=== PATIENT | male | born 1980 | race Caucasian/White ===

== ENCOUNTER 2016-09-21 08:49 | Emergency (ER) | payer BC ==
[2016-09-21 09:08] VITALS: BP 134/80
--- NOTE | 2016-09-21 09:36 | UC ---
Skin Complaint HPI - HPI Summary HPI Summary: CHRONIC RASH LEFT LOWER BACK X 2 YEARS, + ITCHY , GETTING WORSE OVER THE PAST FEW WEEKS NO PAIN . NO CHANGE IN SOAP , DETERGENT, FOOD OR DRINKS - History of Current Complaint Chief Complaint: UCRash Time Seen by Provider: 09/21/16 09:08 Stated Complaint: SKIN COMPLAINT Hx Obtained From: Patient Onset/Duration: Gradual Onset, Lasting Weeks - 2 YEARS, Still Present, Worse Since - PAST 2 WEEKS Timing: Constant Onset Severity: Moderate Current Severity: Moderate Location: Other - LEFT LOWER BACK Character: Pruritus, Redness Aggravating: Nothing Alleviating: Nothing Associated Signs & Symptoms: Positive: Rash. Negative: Nausea, Vomiting, Numbness, Fever, Tenderness - Allergy/Home Medications Allergies/Adverse Reactions: Allergies Allergy/AdvReac Type Severity Reaction Status Date / Time Amoxicillin [From Augmentin] Allergy Severe Hives/Diff. Verified 09/21/16 09:07 Breathing/I tching Clavulanic Acid Allergy Severe Hives/Diff. Verified 09/21/16 09:07 [From Augmentin] Breathing/I tching Penicillins Allergy Severe SWELLS UP Verified 09/21/16 09:07 Review of Systems Constitutional: Negative Skin: Rash - LEFT LOWER BACK Eyes: Negative ENT: Negative Respiratory: Negative Cardiovascular: Negative Gastrointestinal: Negative All Other Systems Reviewed And Are Negative: Yes PMH/Surg Hx/FS Hx/Imm Hx Endocrine History Of: Reports: Diabetes - Type 2, Thyroid Disease - hypothyroid Cardiovascular History Of: Reports: Hypertension Denies: Pacemaker/ICD Respiratory History Of: Reports: Asthma - WHEN A CHILD OUT GREW - Surgical History Surgical History: Yes Surgery Procedure, Year, and Place: ear tubes at 5 -6 years - Family History Known Family History: Positive: Cardiac Disease - Social History Alcohol Use: None Alcohol Amount: 1 beers Substance Use Type: None Smoking Status (MU): Current Some Day Smoker When Did the Patient Quit Smoking/Using Tobacco: will smoke a cigar 1-2 x's a year when golfing Household Exposure Type: Cigars - Immunization History Most Recent Tetanus Shot: 2009 Physical Exam Triage Information Reviewed: Yes Appearance: Well-Appearing, No Pain Distress, Well-Nourished Vital Signs: Initial Vital Signs Temp 98.6 F 09/21/16 09:00 Pulse 83 09/21/16 09:00 Resp 18 09/21/16 09:00 BP 134/80 09/21/16 09:00 Vital Signs Reviewed: Yes Eyes: Positive: Conjunctiva Clear ENT: Positive: Normal ENT inspection, Hearing grossly normal, Pharynx normal Neck exam: Normal Neck: Positive: Supple, Nontender, No Lymphadenopathy Respiratory: Positive: Chest non-tender, Lungs clear, Normal breath sounds Cardiovascular: Positive: RRR, No Murmur, Pulses Normal Skin: Positive: rashes - MACULAR RASH LEFT LOWER BACK , NO TENDERNESS, Course/Dx - Diagnoses Provider Diagnoses: DERMATITIS. ECZEMA Discharge - Discharge Plan Condition: Stable Disposition: HOME Prescriptions: Triamcinolone 0.1% CREAM (NF) [Kenalog 0.1% Cream (NF)] 1 applic TOPICAL BID # 60 gm Patient Education Materials: Eczema (ED) Referrals: Main Dan MD [Primary Care Provider] - If Needed
== END 2016-09-21 09:34 | disposition home or self-care (01) ==
LOC: UCCORT 08:49
DX: L30.9 Dermatitis, unspecified (principal); Z88.1 Allergy status to other antibiotic agents; Z88.0 Allergy status to penicillin; Z72.0 Tobacco use
CPT/HCPCS: 99212; G0463

== ENCOUNTER → 2016-09-27 08:08 | Day surgery (SDC) | payer BC ==
[~2016-09-27 08:08] MED LIST: Buffered Lidocaine 1% SYR 3ML* 3 ML/SYR SYRINGE INTRADERM ONE; Bupivacaine 0.5% SDV PF* 30 ML VIAL ONE; Clindamycin 900 MG IVPREMIX(* 900 MG/50 ML SDV IV ONE; Dexamethasone IV* 4 MG/ML 1 ML (4 MG) IV SLOW PU ONE; Dexamethasone IV* 4 MG/ML 1 ML (4 MG) ONE; Dexmedetomidine* 200 MCG/2 ML 2 ML VIAL ONE; DiMENhydriNATE IV* 50 MG/ML VIAL IV PUSH PRN; Famotidine IV* 10 MG/ML 2 ML (20 mg) IV ONE; Famotidine IV* 10 MG/ML 2 ML (20 mg) ONE; HYDROmorphone* 1 MG/ML 1 ML SYR IV PRN; HYDROmorphone* 1 MG/ML 1 ML SYR ONE; Ketorolac INJ* 30 MG/ML 1 ML VIAL ONE; Lidocaine 2% PF * 5 ML VIAL ONE; Midazolam* 1 MG/ML 5 ML VIAL (5 MG) ONE; Ondansetron INJ* 2 MG/ML VIAL IV PRN; Ondansetron INJ* 2 MG/ML VIAL ONE; PROCHLORPERAZINE INJ 5 MG/ML 2 ML VIAL IV PRN; Propofol* 10 MG/ML 20 ML BTL IV PUSH ONE; Scopolamine 1.5 mg* PATCH ONE; Scopolamine 1.5 mg* PATCH TRANSDERM PRN; Scopolomine PATCH Remove* 1 NOTE MISC PATCH OFF ONE; fentaNYL* 50 MCG/ML 2 ML VIAL (100 MCG VIAL) IV PRN; fentaNYL* 50 MCG/ML 2 ML VIAL (100 MCG VIAL) ONE; oxyCODONE TAB* 5 MG TAB ONE
[2016-09-27 14:59] VITALS: BP 153/90
--- NOTE | 2016-09-28 10:57 | OP ---
DATE OF OPERATION: 09/27/16 - [facility] DATE OF : 84 ATTENDING SURGEON: Dr. Yair Love RADIATOR FITTER: Sadia De Jesus PA-C ANESTHESIOLOGIST: Pilo Watson MD ANESTHESIA: General PRE-OP DIAGNOSIS: Malunion, right medial malleolus, with entrapment of posterior tibial tendon and anterolateral ankle instability and enlarged anterior tibial osteophytes. POST-OP DIAGNOSIS: Malunion, right medial malleolus, with entrapment of posterior tibial tendon and anterolateral ankle instability and enlarged anterior tibial osteophytes. OPERATIVE PROCEDURE: Revision medial malleolar nonunion, decompression posterior tibial tendon. Allograft reconstruction right anterior talofibular ligament and removal of bone spurs anterior tibia. DESCRIPTION OF PROCEDURE: The patient was taken to the operating room where we opened up medially in a longitudinal fashion over the medial malleolus. Posterior to the medial malleolus, we dissected up the posterior tibial tendon which was entrapped inside the fracture fragments. This was isolated while I did an osteotomy with a half-inch curved osteotome of the medial malleolus. We refashioned the nonunited fracture fragments to allow less bulk and to provide a smooth groove in the back for the posterior tibial tendon. We then fixed the medial malleolus with a one-third tubular plate of the Zachary ankle solution tray. Laterally, we opened up over the distal fibula to allow visualization of the anterior capsule, which was basically thin and incompetent. I extended in a T- shaped fashion the capsulotomy to allow full visualization of the lateral dome of the talus. There was a small 5 mm x 8 mm osteochondral defect. This was drilled with the 0.054 C-wire. We then created a blind tunnel at the junction of the anterior portion of the lateral articular cartilage and the neck of the talus. The blind tunnel was 20 mm deep and 7 mm in diameter with a double hamstring tendon over Aron needles. We pulled the double end of the tendon into the deep blind tunnel anchoring this with a 6.25 Bio-Tenodesis screw. We then brought the free end of the tendon up to the lateral fibula where we created a trough through the lateral cortex with a oscar and anchored the tendon under tension using a distal 5- hole one-third anatomic fibular plate of the [place] solution tray. We then brought the redundant periosteum back over the plate, and prior to closing, we removed the anterior osteophytes from the tibia using a small hook osteotome. The medial and lateral wounds were then irrigated thoroughly and closed with Vicryl and ami for the skin and a compression dressing and plaster splint applied. [id number]/[facility] #: [id number] AN
--- NOTE | 2016-09-28 12:31 | RAD ---
INDICATION: Right ankle hardware revision. COMPARISON: Comparison is made with prior x-ray study of the right ankle from June 01, 2016. TECHNIQUE: 7 seconds of intermittent fluoroscopic guidance were provided and 5 spot films of the right ankle were obtained in the operating room. FINDINGS: The films demonstrate placement of metallic plates along the outer aspects of the distal tibia and fibula transfixed with multiple screws. IMPRESSION: INTRAOPERATIVE CONTROL FILMS. CPT II Codes: 6045F
== END | disposition home or self-care (01) ==
LOC: OR 08:08
PROVIDERS: ATTEND Orthopaedic Surgery
DX: S82.51XA Displaced fracture of medial malleolus of right tibia, initial encounter for closed fracture (principal); X58.XXXA Exposure to other specified factors, initial encounter; Y92.9 Unspecified place or not applicable; M25.371 Other instability, right ankle; M25.772 Osteophyte, left ankle; M77.51 Other enthesopathy of right foot and ankle; Z88.0 Allergy status to penicillin; E66.01 Morbid (severe) obesity due to excess calories; E11.9 Type 2 diabetes mellitus without complications; Z79.84 Long term (current) use of oral hypoglycemic drugs; E03.9 Hypothyroidism, unspecified; M19.90 Unspecified osteoarthritis, unspecified site
CPT/HCPCS: 76000; A9270-GY; C1713; C1776; J1100; J1170; J1885; J2250; J2405; J2704; J3010; L8699

== ENCOUNTER 2016-10-08 20:05 | Emergency (ER) | payer BC, OTHER ==
[2016-10-08 20:44] VITALS: BP 135/86
--- NOTE | 2016-10-08 22:27 | UC ---
UC General HPI - HPI Summary HPI Summary: patient recently had surgery for a broken right ankle. he talked to the surgeons office to voice is concern over swelling and numbness of the 2nd 3rd and 4th toes. he slit the cast to see if the numbness went away. he is here now to make usre he is not having any nerve damage or cutting off his circulation. he is currently on ASA for DVT prevention. he denies any calf tenderness, all pain and numbness in the toes. - History of Current Complaint Chief Complaint: UCLowerExtremity Stated Complaint: RIGHT FOOT NUMBESS,TINGLING POST OP Time Seen by Provider: 10/08/16 22:14 Hx Obtained From: Patient Onset/Duration: Gradual Onset, Lasting Days Timing: Constant Onset Severity: Moderate Current Severity: Moderate - Allergy/Home Medications Allergies/Adverse Reactions: Allergies Allergy/AdvReac Type Severity Reaction Status Date / Time Amoxicillin [From Augmentin] Allergy Severe Hives/Diff. Verified 09/27/16 08:34 Breathing/I tching Clavulanic Acid Allergy Severe Hives/Diff. Verified 10/08/16 20:34 [From Augmentin] Breathing/I tching Penicillins Allergy Severe SWELLS UP Verified 10/08/16 20:34 Home Medications: Home Medications Aspirin [Chaparrita Advanced Aspirin Re] 325 mg PO DAILY 10/08/16 [History Confirmed 10/08/16] Triamcinolone 0.1% CREAM (NF) [Kenalog 0.1% Cream (NF)] 1 applic TOPICAL BID PRN 10/08/16 [History Confirmed 10/08/16] oxyCODONE TAB* [Roxycodone TAB 5 mg*] 5 mg PO Q6H PRN 10/08/16 [History Confirmed 10/08/16] PMH/Surg Hx/FS Hx/Imm Hx Previously Healthy: Yes Endocrine History Of: Reports: Diabetes - Type 2, Thyroid Disease - hypothyroid Cardiovascular History Of: Reports: Hypertension Denies: Pacemaker/ICD Respiratory History Of: Reports: Asthma - WHEN A CHILD OUT GREW - Surgical History Surgical History: Yes Surgery Procedure, Year, and Place: ear tubes at 5 -6 years. R foot surgery 2016 - Family History Known Family History: Positive: Cardiac Disease - Social History Alcohol Use: None Alcohol Amount: 1 beers Substance Use Type: None Smoking Status (MU): Current Some Day Smoker Type: Cigars Amount Used/How Often: 1 cigar yearly When Did the Patient Quit Smoking/Using Tobacco: will smoke a cigar 1-2 x's a year when golfing Household Exposure Type: Cigars - Immunization History Most Recent Tetanus Shot: 2009 Review of Systems Constitutional: Negative Skin: Other - bruising on top of right foot Eyes: Negative ENT: Negative Respiratory: Negative Cardiovascular: Negative Gastrointestinal: Negative Genitourinary: Negative Motor: Negative Neurovascular: Negative Musculoskeletal: Negative Neurological: Numbness Psychological: Negative All Other Systems Reviewed And Are Negative: Yes Physical Exam Triage Information Reviewed: Yes Appearance: Well-Appearing, Well-Nourished, Pain Distress Vital Signs: Initial Vital Signs Temp 97.6 F 10/08/16 20:37 Pulse 84 10/08/16 20:37 Resp 18 10/08/16 20:37 BP 135/86 10/08/16 20:37 Pulse Ox 97 10/08/16 20:37 Vital Signs Reviewed: Yes Eye Exam: Normal Eyes: Positive: Conjunctiva Clear ENT Exam: Normal ENT: Positive: Normal ENT inspection, Hearing grossly normal, Pharynx normal, TMs normal Dental Exam: Normal Neck exam: Normal Neck: Positive: Supple, Nontender, No Lymphadenopathy Respiratory Exam: Normal Respiratory: Positive: Chest non-tender, Lungs clear, Normal breath sounds Cardiovascular Exam: Normal Cardiovascular: Positive: RRR, No Murmur, Pulses Normal, Other: - Pedal pulse equal bilaterally, cap refill about 5 sec. Abdominal Exam: Normal Abdomen Description: Positive: Nontender, No Organomegaly, Soft Bowel Sounds: Positive: Present Musculoskeletal: Positive: Other: - able to move all toes, numbness on the dorsum of the 2-4th toes, Neurological Exam: Normal Neurological: Positive: Alert, Muscle Tone Normal Psychological Exam: Normal Skin: Positive: Other - various stages of bruising along the top of the foot Course/Dx - Course Course Of Treatment: hx obtained, exam performed, meds reviewed, education given sheila applied to open cast, educated on s/s to watch for and return to er for further evaluation of symptoms get worse. - Differential Dx - Multi-Symptom Provider Diagnoses: foot swelling post surgery. numbness Discharge - Discharge Plan Condition: Stable Disposition: HOME Patient Education Materials: Leg Edema (ED) Referrals: Main Dan MD [Primary Care Provider] - Additional Instructions: Continue to elevated foot above heart and follow surgeons recommendations. If you develop more swelling or your feet become cold or turn pale please report to ER for further follow up.
== END 2016-10-08 22:32 | disposition home or self-care (01) ==
LOC: UCCORT 20:05
DX: R60.0 Localized edema (principal); Z98.890 Other specified postprocedural states; Z79.82 Long term (current) use of aspirin; Z88.1 Allergy status to other antibiotic agents; Z88.0 Allergy status to penicillin; Z72.0 Tobacco use
CPT/HCPCS: 99212; G0463

== ENCOUNTER 2017-06-20 08:29 | Day surgery (SDC) | payer OTHER ==
--- NOTE | 2017-06-15 11:37 | HP ---
PREOPERATIVE HISTORY AND PHYSICAL: DATE OF ADMISSION: 06/20/17 PROVIDER: Yair Love MD. * (DICTATED BY SHAUN PEREZ) CHIEF COMPLAINT: Right ankle pain. HISTORY OF PRESENT ILLNESS: Manuel is a 37-year-old male followed by Dr. Love for right ankle instability and malunion of medial malleolus fracture. He underwent right ankle ligament repair as well as revision of medial malleolar fracture fixation. He has been doing quite well. He continues to have some mild pain and swelling in the ankle, which is likely the cause of the hardware itself. He is interested in surgical intervention for removal of the hardware at this point. PAST MEDICAL HISTORY: 1. Type 2 diabetes. 2. Hypothyroidism. 3. Hypertension. PAST SURGICAL HISTORY: Right ankle ligament reconstruction and malleolar fixation in 2017, ear tubes insertion as a child. He reports no complications with anesthesia with those procedures. CURRENT MEDICATIONS: 1. Glipizide 5 mg 1 p.o. b.i.d. 2. Diltiazem XR 180 mg 1 p.o. daily. 3. Levothyroxine 175 mcg p.o. daily. 4. Ramipril 10 mg 1 p.o. q.h.s. 5. Metformin HCl 500 mg 2 tablets b.i.d. 6. Januvia 100 mg daily. 7. Tylenol Extra Strength 500 mg 2 tablets 3 times daily as needed for pain. ALLERGIES: AMOXICILLIN, PENICILLIN, and AUGMENTIN. FAMILY HISTORY: Noncontributory. Positive for heart disease and skin cancer. SOCIAL HISTORY: The patient works at the [employer]. He lives with a female partner. He denies tobacco use. He denies alcoholic beverages. He denies any illicit drug use. He does exercise regularly. REVIEW OF SYSTEMS: A 14-point review of systems was discussed with the patient at today's visit. All of the systems were negative except in the HPI. PHYSICAL EXAMINATION GENERAL: He is a well-developed, well-nourished pleasant male in no acute distress at rest. He is alert and oriented x3 with appropriate mood and affect. VITAL SIGNS: The patient is 6 feet 3 inches, 320 pounds. Blood pressure 140/98 , temperature 97.6, respirations 20. HEENT: Normocephalic, atraumatic. Hearing and vision are grossly intact. NECK: His trachea is midline. RESPIRATORY: Lungs clear to auscultation bilaterally. No wheezes, rales or rhonchi. CARDIOVASCULAR: Regular rate and rhythm. No murmurs, rubs or gallops. Normal S1, S2. ABDOMEN: Soft, nondistended, nontender. Normal bowel sounds. EXTREMITIES: Exam of the right lower extremity, incisions are well healed to the medial and lateral aspect of the ankle. There is minimal edema throughout the ankle. He has no significant tenderness medially and laterally. He has full ankle range of motion with 5/5 strength. Sensation to light touch is intact. He has a normal vascular exam. IMPRESSION: Painful hardware of the right ankle. PLAN: The patient is to undergo right ankle hardware removal by Dr. Love on 06/20/17. The risks, benefits and postoperative course were discussed with the patient at length and he would like to proceed. A prescription for hydrocodone was sent to his pharmacy for postoperative pain. He was given a note to be out of work during the recovery period as well. He will follow up in the office in the postoperative phase. All of his questions were answered to his full satisfaction. He is understanding to call should he develop problems or concerns. SHAUN PEREZ [id number]/[facility] #: [id number] AN
[~2017-06-20 08:29] MED LIST changes: +Buffered Lidocaine 0.9% SYRIN* 5 ML/SYR SYRINGE INTRADERM ONE; -Buffered Lidocaine 1% SYR 3ML* 3 ML/SYR SYRINGE INTRADERM ONE; -Bupivacaine 0.5% SDV PF* 30 ML VIAL ONE; -Clindamycin 900 MG IVPREMIX(* 900 MG/50 ML SDV IV ONE; -Dexamethasone IV* 4 MG/ML 1 ML (4 MG) IV SLOW PU ONE; -Dexamethasone IV* 4 MG/ML 1 ML (4 MG) ONE; -Dexmedetomidine* 200 MCG/2 ML 2 ML VIAL ONE; -Famotidine IV* 10 MG/ML 2 ML (20 mg) ONE; -HYDROmorphone* 1 MG/ML 1 ML SYR IV PRN; -HYDROmorphone* 1 MG/ML 1 ML SYR ONE; -Ketorolac INJ* 30 MG/ML 1 ML VIAL ONE; -Lidocaine 2% PF * 5 ML VIAL ONE; -Midazolam* 1 MG/ML 5 ML VIAL (5 MG) ONE; +Morphine INJ* 2 MG/ML 1 ML CARPUJECT IV PRN; -Ondansetron INJ* 2 MG/ML VIAL ONE; -Propofol* 10 MG/ML 20 ML BTL IV PUSH ONE; -Scopolamine 1.5 mg* PATCH ONE; -Scopolomine PATCH Remove* 1 NOTE MISC PATCH OFF ONE; -fentaNYL* 50 MCG/ML 2 ML VIAL (100 MCG VIAL) ONE; -oxyCODONE TAB* 5 MG TAB ONE; +oxyCODONE/Acetamin 5/325 MG* TAB PO PRN
[2017-06-20] MEDS ORDERED: Buffered Lidocaine 0.9% SYRIN* 5 ML/SYR SYRINGE ONE (09:10)
[2017-06-20] MEDS ORDERED: Famotidine IV* 10 MG/ML 2 ML (20 mg) ONE (09:10)
[2017-06-20] MEDS ORDERED: Clindamycin 900 MG IVPREMIX(* 900 MG/50 ML SDV IV ONE (09:10)
[2017-06-20] MEDS ORDERED: fentaNYL* 50 MCG/ML 2 ML VIAL (100 MCG VIAL) ONE ×2 (09:44→10:33)
[2017-06-20] MEDS ORDERED: KETAMINE HCL* 50 MG/ML 10 ML VIAL ONE (09:44)
[2017-06-20] MEDS ORDERED: Midazolam* 1 MG/ML 10 ML VIAL (10 MG) ONE (09:44)
[2017-06-20] MEDS ORDERED: Lidocaine 2% PF * 5 ML VIAL ONE ×3 (10:07→10:43)
[2017-06-20] MEDS ORDERED: Bupivacaine 0.5% SDV PF* 30 ML VIAL ONE (10:07)
[2017-06-20] MEDS ORDERED: Insulin REGULAR(*) 1 UNITS UNIT ONE (10:11)
[2017-06-20] MEDS ORDERED: Phenylephrine IV* 40 MCG/ML 10 ML SYRINGE ONE (10:42)
[2017-06-20] MEDS ORDERED: Ketorolac INJ* 30 MG/ML 1 ML VIAL ONE (10:43)
[2017-06-20] MEDS ORDERED: Ondansetron INJ* 2 MG/ML VIAL ONE (10:43)
[2017-06-20] MEDS ORDERED: Propofol* 10 MG/ML 20 ML BTL IV PUSH ONE (10:43)
[2017-06-20] MEDS ORDERED: Labetalol IV* 5 MG/ML 20 ML VIAL ONE (10:54)
[2017-06-20] MEDS ORDERED: oxyCODONE/Acetamin 5/325 MG* TAB ONE (12:08)
[2017-06-20 13:30] VITALS: BP 138/86
--- NOTE | 2017-06-21 06:49 | OP ---
DATE OF OPERATION: 06/20/17 - [facility] DATE OF : 84 SURGEON: Yair Love MD EMPLOYMENT OFFICE CLERK: Sadia De Jesus PA-C ANESTHESIOLOGIST: Marcus Albarran MD ANESTHESIA: General PRE-OP DIAGNOSIS: Painful hardware, right medial malleolus and lateral malleolus. POST-OP DIAGNOSIS: Painful hardware, right medial malleolus and lateral malleolus. OPERATIVE PROCEDURE: Removal of hardware, right ankle. DESCRIPTION OF PROCEDURE: The patient was taken to the operating room where longitudinal incision made along the right medial malleolus. Plate was identified immediately in the subcutaneous tissue, removed with the locking screw-cement mixer driver. The bed of the plate was irrigated and rongeured into a smooth surface and we closed the subcu tissue with 2-0 Vicryl and ami for the skin. Laterally, the longitudinal incision was made along the fibula and similar approach made to remove the locking plate over the distal fibula. Subcutaneous closure with 2-0 Vicryl and ami for the skin and a compression dressing applied. [id number]/[facility] #: [id number] [facility]
[2017-06-23] MEDS ORDERED: Scopolamine PATCH Remove* 1 NOTE MISC PATCH OFF ONE (05:45)
== END 2017-06-20 13:30 | disposition home or self-care (01) ==
LOC: OR 08:29
PROVIDERS: ATTEND Orthopaedic Surgery
DX: T84.84XA Pain due to internal orthopedic prosthetic devices, implants and grafts, initial encounter (principal); Y83.1 Surgical operation with implant of artificial internal device as the cause of abnormal reaction of the patient, or of later complication, without mention of misadventure at the time of the procedure; S82.841S Displaced bimalleolar fracture of right lower leg, sequela; X58.XXXS Exposure to other specified factors, sequela; Y92.9 Unspecified place or not applicable; E11.9 Type 2 diabetes mellitus without complications; Z79.84 Long term (current) use of oral hypoglycemic drugs; E03.9 Hypothyroidism, unspecified; I10 Essential (primary) hypertension
CPT/HCPCS: 88300; A9270-GY; J1885; J2250; J2405; J2704; J3010

== ENCOUNTER 2018-01-18 16:58 | Emergency (ER) | payer BC, OTHER ==
[2018-01-18 17:54] VITALS: BP 142/97
--- NOTE | 2018-01-18 18:24 | RAD ---
Indication: RIGHT thumb crush injury distally. Comparison: No relevant prior exams available on the [facility] for comparison. Technique: AP, lateral, and oblique views RIGHT thumb. REPORT AND IMPRESSION: #. Negative for fracture or dislocation. Preserved joint spaces. Mild nonfocal soft tissue swelling.
--- NOTE | 2018-01-18 18:55 | ED ---
Adult Trauma - History of Current Complaint Chief Complaint: UCUpperExtremity Stated Complaint: RT THUMB INJURY - W/C Time Seen by Provider: 01/18/18 17:59 Pain Intensity: 2 - Allergy/Home Medications Allergies/Adverse Reactions: Allergies Allergy/AdvReac Type Severity Reaction Status Date / Time amoxicillin [From Augmentin] Allergy Hives/Diff. Verified 01/18/18 17:45 Breathing/I tching clavulanic acid Allergy Hives/Diff. Verified 01/18/18 17:45 [From Augmentin] Breathing/I tching Penicillins Allergy Hives/Diff. Verified 01/18/18 17:45 Breathing/I tching PMH/Surg Hx/FS Hx/Imm Hx Endocrine/Hematology History: Reports: Hx Diabetes - Type 2, Hx Thyroid Disease - hypothyroid Cardiovascular History: Reports: Hx Hypertension Denies: Hx Pacemaker/ICD Respiratory History: Reports: Hx Asthma - WHEN A CHILD OUT GREW GI History: Reports: Hx Jaundice - AT Musculoskeletal History: Reports: Hx Arthritis, Hx Bursitis - left elbow- resolved Sensory History: Reports: Hx Contacts or Glasses - GLASSES Denies: Hx Hearing Aid Opthamlomology History: Reports: Hx Contacts or Glasses - GLASSES Psychiatric History: Denies: Hx Panic Disorder - Surgical History Surgery Procedure, Year, and Place: ear tubes at 5 -6 years. R foot surgery 2016- HARDWARE REMOVED 06/2017 Hx Anesthesia Reactions: Yes - TOOK A LONG TIME TO WAKE UP Infectious Disease History: No Infectious Disease History: Denies: Hx Clostridium Difficile, Hx Hepatitis, Hx Human Immunodeficiency Virus (HIV), Hx of Known/Suspected MRSA, Hx Shingles, Hx Tuberculosis, Hx Known/ Suspected VRE, Hx Known/Suspected VRSA, History Other Infectious Disease, Traveled Outside the [place] in Last 30 Days - Family History Known Family History: Positive: Cardiac Disease - Social History Alcohol Use: None Alcohol Amount: 1 beers Substance Use Type: Reports: None Smoking Status (MU): Former Smoker Type: Cigars Amount Used/How Often: 1 cigar yearly Have You Smoked in the Last Year: No Review of Systems Constitutional: Negative Eyes: Negative ENT: Negative Cardiovascular: Negative Respiratory: Negative Gastrointestinal: Negative Genitourinary: Negative Musculoskeletal: Negative, Other - injury to right thumb Skin: Other Positive: Bruising - subungual hematoma All Other Systems Reviewed And Are Negative: Yes Physical Exam Triage Information Reviewed: Yes Vital Signs On Initial Exam: Initial Vitals Temp Pulse Resp BP Pulse Ox 36.4 C 74 16 142/97 99 01/18/18 17:47 01/18/18 17:47 01/18/18 17:47 01/18/18 17:47 01/18/18 17:47 Vital Signs Reviewed: Yes Appearance: Positive: Well-Appearing Skin: Positive: Warm, Other - right thumb subungual hematoma Neck: Positive: Supple Respiratory/Lung Sounds: Positive: Clear to Auscultation Cardiovascular: Positive: Normal Abdomen Description: Positive: Nontender Musculoskeletal: Positive: Other - mildly decreased range of motion of the right thumb Diagnostics - Vital Signs Vital Signs Temp Pulse Resp BP Pulse Ox 01/18/18 17:47 36.4 C 74 16 142/97 99 - Laboratory Lab Statement: Any lab studies that have been ordered have been reviewed, and results considered in the medical decision making process. Adult Trauma Course/Dx - Course Course Of Treatment: discharged to home after drainage of subungual hematoma - Diagnoses Differential Diagnosis/HQI/PQRI: Positive: Hematoma(s) - subungual hematoma Provider Diagnoses: Subungual hematoma Discharge - Sign-Out/Discharge Documenting (check all that apply): Patient Departure - discharged to home - Discharge Plan Condition: Good Disposition: HOME Patient Education Materials: Subungual Hematoma (ED) Referrals: Main Dan MD [Primary Care Provider] - - Billing Disposition and Condition Condition: GOOD Disposition: Home
== END 2018-01-18 18:57 | disposition home or self-care (01) ==
LOC: UCCORT 16:58
DX: S60.011A Contusion of right thumb without damage to nail, initial encounter (principal); X58.XXXA Exposure to other specified factors, initial encounter; Y93.9 Activity, unspecified; Y92.9 Unspecified place or not applicable; Y99.0 Civilian activity done for income or pay; E11.9 Type 2 diabetes mellitus without complications; E03.9 Hypothyroidism, unspecified; I10 Essential (primary) hypertension; Z88.1 Allergy status to other antibiotic agents; Z88.0 Allergy status to penicillin; Z82.49 Family history of ischemic heart disease and other diseases of the circulatory system; Z87.891 Personal history of nicotine dependence
CPT/HCPCS: 11740; 99211; G0463

== ENCOUNTER → 2018-05-08 07:49 | Day surgery (SDC) | payer BC ==
[~2018-05-08 07:49] MED LIST changes: +Bupivacaine 0.25% SDV* 30 ML ONE; +Bupivacaine 0.25% W/EPI* 10 ML SDV ONE; +Clindamycin 900 MG/D5W BAG(*) 900 MG/50 ML BAG IVPB ONE; -DiMENhydriNATE IV* 50 MG/ML VIAL IV PUSH PRN; +Famotidine IV* 10 MG/ML 2 ML (20 mg) ONE; +HYDROcodone/ACETAMIN 5-325 MG* 1 TAB PO PRN; +Ketorolac INJ* 30 MG/ML 1 ML VIAL ONE; +Lidocaine 2% PF * 5 ML VIAL ONE; +Metoclopramide IV* 5 MG/ML 2 ML VIAL IV SLOW PU ONE; +Metoclopramide IV* 5 MG/ML 2 ML VIAL ONE; +Midazolam* 1 MG/ML 5 ML VIAL (5 MG) ONE; -Morphine INJ* 2 MG/ML 1 ML CARPUJECT IV PRN; +Naloxone* 0.4 MG/ML 1 ML VIAL IV PRN; -Ondansetron INJ* 2 MG/ML VIAL IV PRN; +Ondansetron INJ* 2 MG/ML VIAL ONE; -PROCHLORPERAZINE INJ 5 MG/ML 2 ML VIAL IV PRN; +Propofol* 10 MG/ML 20 ML BTL IV PUSH ONE; +Rocuronium* 10 MG/ML VIAL ONE; -Scopolamine 1.5 mg* PATCH TRANSDERM PRN; -fentaNYL* 50 MCG/ML 2 ML VIAL (100 MCG VIAL) IV PRN; +fentaNYL* 50 MCG/ML 2 ML VIAL (100 MCG VIAL) ONE; +fentaNYL* 50 MCG/ML 5 ML VIAL (250 MCG VIAL) ONE; +oxyCODONE/Acetamin 5/325 MG* TAB ONE
[2018-05-08] MEDS: fentaNYL* 50 MCG/ML 2 ML VIAL (100 MCG VIAL) IV PRN ×3 (13:23→14:10)
[2018-05-08 14:24] VITALS: BP 128/85
--- NOTE | 2018-05-09 05:51 | OP ---
DATE OF OPERATION: 05/08/18 - [facility] DATE OF : 84 SURGEON: Yair Fairchild MD MOVEMENT ASSEMBLY FINAL INSPECTOR: SHAUN Dennison. An commercial lines account assistant was needed for the procedure to aid in positioning of the arm and retraction. ANESTHESIOLOGIST: Dr. Louis. ANESTHESIA: General. PRE-OP DIAGNOSES: 1. Chronic right inflammatory olecranon bursitis. 2. Partial triceps tendon rupture of the medial triceps tendon. POST-OP DIAGNOSES: 1. Chronic right inflammatory olecranon bursitis. 2. Partial triceps tendon rupture of the medial triceps tendon. OPERATIVE PROCEDURE: 1. Right elbow olecranon bursectomy. 2. Repair of right triceps tendon rupture. INDICATIONS: Ravindra has had chronic inflammatory olecranon bursitis now for a couple of months. Ultimately, he had acute increase of pain about a week and half ago. He had tremendous pain with elbow extension. He had weakness as well. MRI confirmed high-grade rupture of the medial aspect of the triceps. We had talked about risks and benefits. He is a diabetic and I told him he has had to keep good perioperative glycemic control to minimize any chance of infection. He understands risks and benefits, he wished to proceed with surgery. ESTIMATED BLOOD LOSS: 5 mL. COMPLICATIONS: None. FINDINGS: See above and below. DESCRIPTION OF PROCEDURE: Ravindra was seen in the preoperative holding area. The correct site, side, and procedure were identified. We came back to the operating room where the arm was prepped and draped in the usual fashion. He was placed in the lateral decubitus position with the right arm held up on an arm pascual so as to present to us the posterior elbow. A time-out was performed. The arm was exsanguinated with the Esmarch and the tourniquet inflated to 275 mmHg. I made a posterior longitudinal incision over the midline of the elbow. The dermis was from the chronic bursitis underneath it. I circum- ferentially released the bursa and excised it in its entirety taking it directly off the triceps fascia and the periosteum of the proximal ulna. This was handed off as a specimen. There was one area in particular which was quite nodular. I then turned my attention to the triceps. The medial triceps was clearly retracted. There was some degenerative scar tissue forming in the area where the rupture had occurred. I went ahead and excised sharply all of that tissue out and prepared the medial aspect of the triceps. I then placed two #2 FiberWire sutures in whipstitch-type fashion into the distal 5 to 8 cm of triceps tendon. I placed two parallel bone tunnels, one in the mid aspect of the olecranon and one on the more medial aspect of the olecranon. The lateral aspect where the tendon was intact was left undisturbed. I passed one tail of each suture out through each bone tunnel. I then pulled traction with one suture while I tied off the other suture. I then tied off the second #2 FiberWire over the bone bridge which was a centimeter in width. This brought the tendon very nicely down to bone. I augmented the repair with a couple of epitendinous type 0 Vicryl sutures. The periosteum was sewn over the knots of the #2 FiberWire with 2-0 Vicryl suture. Everything was looking good, so we irrigated out the wound. The subcutaneous tissue was reapproximated and the skin was then closed with 3-0 nylon suture. The wound was dressed with Xeroform , 4x4, ABD, sterile Webril and a nice compressive dressing was applied with a posterior slab splint with the elbow in 30 degrees of flexion was applied. Tourniquet was deflated. The hand pinked up immediately. He was then taken to the recovery room in stable condition. [id number]/[facility] #: [id number] AN
== END | disposition home or self-care (01) ==
LOC: OR 07:49
PROVIDERS: ATTEND Orthopaedic Surgery Hand Surgery
DX: M70.21 Olecranon bursitis, right elbow (principal); S46.301D Unspecified injury of muscle, fascia and tendon of triceps, right arm, subsequent encounter; E11.9 Type 2 diabetes mellitus without complications; Z79.84 Long term (current) use of oral hypoglycemic drugs; I10 Essential (primary) hypertension; J45.909 Unspecified asthma, uncomplicated; E78.5 Hyperlipidemia, unspecified; E03.9 Hypothyroidism, unspecified; X58.XXXD Exposure to other specified factors, subsequent encounter; Y92.9 Unspecified place or not applicable
CPT/HCPCS: 88304; A9270-GY; J1885; J2250; J2405; J2704; J2765; J3010